=== PATIENT | male | born 1950 | race Caucasian/White ===

== ENCOUNTER 2018-05-24 20:31 | Inpatient (IN) | payer MEDICARE ==
[~2018-05-24] VITALS: Ht 193 cm; Wt 110.0 kg
[2018-05-24] MEDS ORDERED: ONDANSETRON 2MG/ML, 2ML IVPush ONE (21:00)
[2018-05-24] MEDS ORDERED: SODIUM CHLORIDE 0.9% 1,000ML IVBOLUS ONE (21:00)
[2018-05-24] MEDS ORDERED: SODIUM CHLORIDE FLUSH 10ML SYR IVF ONE (21:00)
[2018-05-24] MEDS ORDERED: ASPI-515 PO (21:01)
[2018-05-24] MEDS ORDERED: LISI-170 PO (21:01)
[2018-05-24] MEDS ORDERED: BENA40TA2 PO (21:01)
[2018-05-24] MEDS ORDERED: MORPHINE SULFATE 4 MG/ML, 1ML ONE ×2 (21:05→22:55)
[2018-05-24] MEDS ORDERED: ONDANSETRON 2MG/ML, 2ML ONE (21:05)
[2018-05-24] MEDS ORDERED: GLUCAGON 1 MG ONE (21:06)
[2018-05-24] MEDS: MORPHINE SULFATE 4 MG/ML, 1ML IVPush PRN ×2 (21:07→23:03)
[2018-05-24] MEDS ORDERED: FENTANYL PF 100 MCG/2ML ONE (21:52)
[2018-05-24] MEDS ORDERED: MIDAZOLAM 1 MG/ML, 2ML ONE (21:52)
[2018-05-24] MEDS ORDERED: PANTOPRAZOLE 80 MG in SODIUM CHLORIDE 0.9% 50 ML IVPB ONE (22:16)
[2018-05-24] MEDS ORDERED: PANTOPRAZOLE 40 MG IV IVP ONE (22:30)
[2018-05-24] MEDS ORDERED: ONDANSETRON 2MG/ML, 2ML IVPush PRN (22:30)
[2018-05-24] MEDS ORDERED: BISACODYL 10 MG SUPP PR PRN (22:30)
[2018-05-24] MEDS ORDERED: hydrALAzine 20 MG/ML, 1ML IVPush PRN (22:30)
[2018-05-24] MEDS: SODIUM CHLORIDE 0.9% 1,000 ML IV SCH (23:44)
[2018-05-25] VITALS: BP 149/53
[2018-05-25] MEDS: PANTOPRAZOLE 80 MG in SODIUM CHLORIDE 0.9% 100 ML IV SCH ×2 (00:08→08:22)
[2018-05-25] MEDS: morphine SULFATE 10 MG/ML, 1ML IVPush PRN ×3 (01:31→05:35)
[2018-05-25 01:48] VITALS: BP 137/77
[2018-05-25 06:07] LABS: BASOPHILS % (AUTO) 0 % (0-1); EOSINOPHILS # (AUTO) 0.03 x10^3/uL (0-0.4); EOSINOPHILS % (AUTO) 0 % (1-7); LYMPHOCYTES # (AUTO) 0.93 x10^3/uL (1-3.4); LYMPHOCYTES % (AUTO) 8 % (22-44); MD NO; MEAN PLATELET VOLUME 9.5 fL (7.4-10.4); MONOCYTES # (AUTO) 0.87 x10^3/uL (0.2-0.8); MONOCYTES % (AUTO) 8 % (2-9); NEUTROPHILS # (AUTO) 9.45 x10^3/uL (1.8-6.8); NEUTROPHILS % (AUTO) 84 % (42-75); PLATELET COUNT 157 x10^3/uL (130-400); RED CELL DISTRIBUTION WIDTH 13.3 % (9.4-14.8)
[2018-05-25 06:08] LABS: ALBUMIN 3.8 g/dL (3.4-5.0); ANION GAP 5 mmol/L (5-15); CHLORIDE 110 mmol/L (98-107)
[2018-05-25 06:11] LABS: ALANINE AMINOTRANSFERASE 39 U/L (12-78); ALKALINE PHOSPHATASE 76 U/L (45-117); BILIRUBIN,TOTAL 1.1 mg/dL (0.2-1.0); CREATININE 1.13 mg/dL (0.7-1.3)
[2018-05-25 07:25] VITALS: BP 142/79
[2018-05-25] MEDS: SUCRALFATE 1 GM/10 ML UDC PO SCH ×2 (11:52→16:20)
[2018-05-25] MEDS: SODIUM CHLORIDE 0.9% 1,000 ML IV SCH (11:54)
[2018-05-25] MEDS ORDERED: SUCRALFATE 1 GM/10 ML UDC PO SCH (12:00)
[2018-05-25 13:50] VITALS: BP 142/67
[2018-05-25] MEDS ORDERED: SUCR1ORA5 PO (16:31)
[2018-05-25] MEDS ORDERED: PANT40TA3 PO (16:31)
[2018-05-25] MEDS ORDERED: SUCRALFATE 1 GM TABLET PO SCH (21:00)
[2018-05-26] MEDS ORDERED: PANTOPROZOLE 40MG TABLET PO SCH (09:00)
[2018-05-26] MEDS ORDERED: ASPIRIN 81 MG TABLET EC PO SCH (09:00)
[2018-05-26] MEDS ORDERED: BENAZEPRIL 20 MG TABLET PO SCH (09:00)
[2018-05-26] MEDS ORDERED: LISINOPRIL 20 MG TABLET PO SCH (09:00)
== END 2018-05-25 17:10 | disposition home or self-care (01) | DRG 393 ==
LOC: ED 21:58 → EDIP 22:18 → OBSVTOIN 22:40 → 3NE 23:33
PROVIDERS: ADMIT Hospitalist; ATTEND Hospitalist
PROC: 0DC58ZZ Extirpation of Matter from Esophagus, Via Natural or Artificial Opening Endoscopic (ICD-10-PCS; principal; 2018-05-24 21:30)
DX: T18.128A Food in esophagus causing other injury, initial encounter (principal); K22.6 Gastro-esophageal laceration-hemorrhage syndrome; X58.XXXA Exposure to other specified factors, initial encounter; Y93.89 Activity, other specified; Y92.89 Other specified places as the place of occurrence of the external cause; E66.3 Overweight; E78.5 Hyperlipidemia, unspecified; I10 Essential (primary) hypertension; K26.9 Duodenal ulcer, unspecified as acute or chronic, without hemorrhage or perforation; K44.9 Diaphragmatic hernia without obstruction or gangrene; Z66 Do not resuscitate; Z79.82 Long term (current) use of aspirin; Z79.899 Other long term (current) drug therapy; Z88.2 Allergy status to sulfonamides
CPT/HCPCS: 36415; 74220; 80053; 85025; 96361; 96374; 96375; 96376; J2405; C9113; G0378; J2270; J7030

== ENCOUNTER 2019-10-30 06:18 | Emergency (ER) | payer MEDICARE ==
[~2019-10-30] VITALS: Ht 193 cm; Wt 110.4 kg
[~2019-10-30 06:18] MED LIST: ASPI-515 PO; BENA40TA3 PO; LISI-170 PO; PANT40TA3 PO; SUCR1ORA5 PO
[2019-10-30 06:23] VITALS: BP 151/71
--- NOTE | 2019-10-30 06:28 | NUR ---
Pt to lobby after triage. Pt placed in gown for comfort.
--- NOTE | 2019-10-30 06:49 | NUR ---
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
[2019-10-30 07:41] LABS: ALANINE AMINOTRANSFERASE 43 U/L (12-78); ALBUMIN 4.1 g/dL (3.4-5.0); ANION GAP 4 mmol/L (5-15); CALCIUM 9.6 mg/dL (8.5-10.1); CHLORIDE 107 mmol/L (98-107); CREATININE 1.13 mg/dL (0.7-1.3)
[2019-10-30 07:43] LABS: ALKALINE PHOSPHATASE 87 U/L (45-117); BILIRUBIN,TOTAL 0.7 mg/dL (0.2-1.0); TOTAL PROTEIN 8.2 g/dL (6.4-8.2)
--- NOTE | 2019-10-30 09:00 | NUR ---
NO IV TO DC. REVIEWED DC INSTRUCTIONS WITH PT, UNDERSTANDING VERBALIZED. PT LEFT AMB, GAIT STEADY.
== END 2019-10-30 09:03 | disposition home or self-care (01) ==
LOC: ED 07:16
DX: B37.2 Candidiasis of skin and nail (principal); I10 Essential (primary) hypertension; K22.6 Gastro-esophageal laceration-hemorrhage syndrome
CPT/HCPCS: 36415; 80053; 99283; J7512